=== PATIENT | male | born 1975 | race Hispanic/Latino ===

== ENCOUNTER 2017-06-08 10:31 | Day surgery (SDC) | payer OTHER ==
[2017-05-31 08:14] VITALS: BMI 29.9
[2017-06-08] MEDS ORDERED: Propofol 10 mg/ml Inj (20 ML) ONE ×3 (12:43→13:11)
[2017-06-08] MEDS ORDERED: Lidocaine 2% Inj (20ml) ONE (12:44)
[2017-06-08] MEDS ORDERED: Sodium Chloride 0.9% 1,000 ML IV SCH (13:45)
[2017-06-08 14:22] VITALS: BP 131/81; PULSE 68; RESP 18; TEMP 97.7; O2SAT 97
== END 2017-06-08 14:51 | disposition home or self-care (01) ==
LOC: ENDO 10:31
PROVIDERS: ATTEND Internal Medicine
DX: K63.5 Polyp of colon (principal); K62.1 Rectal polyp; K29.70 Gastritis, unspecified, without bleeding; K44.9 Diaphragmatic hernia without obstruction or gangrene; K20.8 Other esophagitis; K64.8 Other hemorrhoids; R19.4 Change in bowel habit; R14.0 Abdominal distension (gaseous)
CPT/HCPCS: 43239; 45380; 88305; 88342; J2704; J3010; J7040 ×2